=== PATIENT | female | born 1990 | race Caucasian/White ===

== ENCOUNTER 2018-08-21 16:36 | Emergency (ER) | payer OTHER ==
[2018-08-21 17:31] VITALS: BMI 32.8
--- NOTE | 2018-08-21 17:33 | OBHP ---
Datetime: 08/21/2018 17:21 IP Adm Impression: , intrauterine IP Admit Plan: Discharge home Admit Comment, IP Provider: A/P: at 34.2wks- Cholestasis of - NST NST WNL Cholestasis of - on Ursodiol kick count instructions given RTO in 1 week - cased discussed with Dr. De La Cruz, discharge home FHR - Baseline A Provider: 140 Gestation - Est Wks by US: 34.2 EGA AdmitDate IP: 34.2 Vital Signs Provider: Reviewed; Within Normal Limits IP Chief Complaint: Other NICHD Variability Prov Fetus A: Moderate 6-25bpm NICHD Accel Fetus A IP Provider: [id number] FHR Category Provider Fetus A: Category I NICHD Decel Fetus A IP Provider: None
[2018-08-23 15:47] VITALS: BP 99/68; PULSE 95; TEMP 97
== END 2018-08-21 17:23 | disposition home or self-care (01) ==
LOC: C.EROB 16:36
DX: O26.613 Liver and biliary tract disorders in pregnancy, third trimester (principal); K83.1 Obstruction of bile duct; Z3A.34 34 weeks gestation of pregnancy